=== PATIENT | female | born 2000 | race Caucasian/White ===

== ENCOUNTER 2025-03-19 12:05 | Outpatient (CLI) | payer MEDICAID, SELFPAY ==
[2025-03-19 12:17] VITALS: BP 111/64; PULSE 96
[2025-03-19 12:25] VITALS: BP 102/56; PULSE 74
[2025-03-19 12:35] VITALS: BP 109/63; PULSE 75
[2025-03-19 12:45] VITALS: BP 106/64; PULSE 78
[2025-03-19 12:55] VITALS: BP 105/60; PULSE 77
== END 2025-03-19 13:05 | disposition home or self-care (01) ==
LOC: OPOB 12:06 → OBGYN 12:06
PROVIDERS: PCP Family Medicine; Visit Provider Family Medicine
DX: O36.8190 Decreased fetal movements, unspecified trimester, not applicable or unspecified (principal); Z3A.00 Weeks of gestation of pregnancy not specified
CPT/HCPCS: 59025; 99211

== ENCOUNTER 2025-03-26 06:40 | Inpatient (IN) | payer MEDICAID, SELFPAY ==
[2025-03-26] VITALS (29 sets, daily range): BP systolic 89–139; BP diastolic 51–76; PULSE 64–96; RESP 16–17; TEMP 36.6–37; O2SAT 97–98; BMI 26.6
[2025-03-26 07:39] LABS: Hematocrit 39.3 % (36-47); Hemoglobin 13.30 g/dL (11.27-16.99); Mean Corpuscular HGB Conc 33.8 g/dL (30-55); Mean Corpuscular Hemoglobin 30.6 pg (27-33); Mean Corpuscular Volume 90.3 fl (85-98); Nucleated Red Blood Cells % 0 %; Platelet Count 142 10^3/cmm (157-399); Red Blood Count 4.35 10^6/uL (3.85-5.65); White Blood Count 8.81 10^3/uL (3.29-11.43)
[2025-03-26] MEDS: oxytocin 30 UNIT/500 ML BAG 600 UNIT IV (08:33)
--- NOTE | 2025-03-26 08:41 | PM.OPHPUD ---
Labor & Delivery H&P Update Date of Procedure: March 26, 2025 Date H&P Performed: 03/24/25 Admission Diagnosis: IUP at 39 weeks 6 days gestation in active labor Planned procedure: Expectant management of labor and delivery
--- NOTE | 2025-03-26 08:43 | P.PCNOB_ITS ---
Delivery Note: Date of delivery: March 26, 2025 Procedure: Normal spontaneous vaginal delivery Delivering Physician: Libby Sinha MD Estimated blood loss (mL): 250 Pre-Delivery Course: The patient had routine care at [facility]. There were no complications during the . labs: She was blood type O+, antibody negative, hepatitis B nonreactive, hepatitis C nonreactive, HIV nonreactive, rubella immune, GC/chlamydia negative, RPR nonreactive, UDS negative, Pap smear was LSIL , Q low risk, she passed her glucose tolerance test, she was GBS negative. Delivery: This is a 24-year-old G2, P1 at 39 weeks 5 days gestation who presented to labor and delivery in active labor. She declined an epidural for pain management. Her labor progressed well on its own and she remained very much in control. When she was an anterior lip artificial rupture of membranes was performed with clear fluid. 2 contractions later she was ready to start pushing. She only had to push through about 3 or 4 contractions and had a normal spontaneous vaginal delivery of a viable male . Not yet weighed he is doing skin to skin. When the was born the umbilical cord spontaneously avulsed. I quickly grabbed the free end and placed the infant on mother's chest. The nurses were then able to suction him while I clamped the cord. Apgars were 8 and 9. The placenta was delivered grossly intact and normal to inspection. Barrington galindo had a very small first-degree perineal laceration that did not require suturing. Mother and were doing well after delivery A&P PDMP PDMP Reviewed: Not Reviewed Coding Level of Care Code Acute Code for Chg Fwd
[2025-03-26] MEDS: benzocaine-menthol 78 gm Canister 1 SPRAY TOPICAL (09:52)
[2025-03-26] MEDS: PRENATAL VIT NO.130/IRON/FOLIC 1 EACH TABLET PO (09:52)
[2025-03-26 20:56] LABS: Hematocrit 34.4 % (36-47); Hemoglobin 11.30 g/dL (11.27-16.99); Mean Corpuscular HGB Conc 32.8 g/dL (30-55); Mean Corpuscular Hemoglobin 30.1 pg (27-33); Mean Corpuscular Volume 91.5 fl (85-98); Platelet Count 127 10^3/cmm (157-399); Red Blood Count 3.76 10^6/uL (3.85-5.65); White Blood Count 10.12 10^3/uL (3.29-11.43)
[2025-03-27 04:52] VITALS: BP 113/70; PULSE 75; RESP 15; TEMP 36.6; TEMP 36.7; O2SAT 96
--- OUTSIDE RECORDS SUMMARY | 2025-03-27 06:11 | XMS_ITS | Continuity of Care Document ---
Author Name [facility] Organization [facility] Care Team Providers Care Shift Supervisor Melting Name Role Phone [facility] Unavailable Unavailable Problems Combined list of problems from Department of [facility] and [facility] facilities. It does not include entries that were removed or entered in error. Problem Status Onset Date Problem Type Date of Resolution Comments Source No Known Problems Active Condition 0029 [facility] visit for: examination for sports competition Inactive Condition [facility] Established Patient Age 5-11 School / Camp Physical Inactive Condition [facility] OTITIS EXTERNA Inactive Condition [facility] OTITIS EXTERNA - BOTH EARS Inactive Condition [facility] Vaccines Prophylactic Need Against DTP Inactive Condition [facility] Vaccines Prophylactic Need Against Bacterial Diseases Meningococcal Inactive Condition [facility] Preventive Medicine New Patient Evaluation Childhood 5-11 Active Condition [facility] Need For Vaccination Human Papilloma Virus Inactive Condition [facility] visit for: issue medical certificate Inactive Condition [facility] visit for: administrative purpose Inactive Condition [facility] Medications Combined list of outpatient medications from Department of [facility] and [facility] facilities.Medications provided include 1) outpatient medications from the last 15 months, and 2) patient-reported medications. Medication Details Route Status Patient Instructions Prescription Expires Prescription Number Last Dispense Date Ordering Provider Order Date Order Qty Source cetirizine 10 mg oral tablet 1 tab(s), Oral, Daily, PRN allergy symptoms , # 90 tab(s), 0 total refill(s ), [facility], Pharmacy : [facility] Oral (given by mouth) Ordered 3 2022 90.0 0029A-N [facility] diphenhydrA MINE 25 mg oral capsule 1 cap(s), Oral, TID, PRN itching, # 30 cap(s), 0 total refill(s ), [place], Pharmacy : [facility] Oral (given by mouth) Ordered 3 2022 30.0 0029A-N [facility] valACYclovi r 1 g oral tablet 1 tab(s), Oral, BID, drink plenty of fluids, X 10 days, # 20 tab(s), 0 total refill(s ), Acute, 08/15/23 10:21:00 AM [employer]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 It does not include entries that were removed or entered in error. Substance Category Reaction Severity Reaction type Status Date Reported Comments Source No Known Allergies Drug allergy (disorder) active 08/05/2023 [facility] Immunizations Combined list of available immunizations from the Department of [facility] and [facility] facilities. Immunization Series Date Given Administered By Site Reaction Lot Number CVX Code Drug Metal Stamper Status Comments Source influenza, injectable, quadrivalent- pf 2019 zzLef t Arm [id number] 150 Seqirus complet ed influenza , injectabl e, quadrival ent-pf 06/15/20 Given Ambulat ory Pharmac y Influenza, injectable, quadrivalent, preservative free 1 2019 SADIE LITTLE [id number] 150 Seqirus (SEQ) complet ed Influenza , injectabl e, quadrival ent, preservat verena free DoD tetanus, diphtheria, acellular pertu is 2012 Eliseo Arm [id number] 115 sanofi pasteur complet ed tetanus, diphtheri a, acellular pertussis 01/01/13 Given Ambulat ory Pharmac y meningococcal A,C,Y,W-135 (MCV4P) 2012 zzLef t Arm [id number] [employer] complet ed meningoco ccal A,C,Y,W-1 35 (MCV4P) 01/01/13 Given Ambulat ory Pharmac y Human Papillomaviru s,quadrivalen t(HPV4) 2012 zzLef t Arm [id number] Merck & Company Inc complet ed Human Papilloma virus,ana drivalent (HPV4) 01/01/13 Given Ambulat ory Pharmac y human papilloma virus vaccine, quadrivalent 3 2012 Unknown, Provider [id number] Merck (MSD) complet ed human papilloma virus vaccine, quadrival ent DoD meningococcal polysaccharid e (groups A, C, Y and W-135) diphtheria toxoid conjugate vaccine (MCV4P) 1 2012 Unknown, Provider [id number] Dandre (WAL) complet ed meningoco ccal polysacch aride (groups A, C, Y and W-135) diphtheri a toxoid conjugate vaccine (MCV4P) DoD tetanus toxoid, reduced diphtheria toxoid, and acellular pertu is vaccine, adsorbed 1 2012 Unknown, Provider [id number] 115 Sanofi Pasteur (PMC) complet ed tetanus toxoid, reduced diphtheri a toxoid, and acellular pertussis vaccine, adsorbed DoD Human Papillomaviru s,quadrivalen t(HPV4) 2011 zzLef t Arm [id number] [employer] complet ed Human Papilloma virus,ana drivalent (HPV4) 04/17/12 Given Ambulat ory Pharmac y human papilloma virus vaccine, quadrivalent 2 2011 Unknown, Provider [id number] 62 [employer] (MSD) complet ed human papilloma virus vaccine, quadrival ent DoD Human Papillomaviru s,quadrivalen t(HPV4) 2010 Body, whole TRANSCR IBED 62 complet ed Human Papilloma virus,ana drivalent (HPV4) 12/13/10 Given Ambulat ory Pharmac y human papilloma virus vaccine, quadrivalent 1 2010 62 Transcribed (TRS) complet ed human papilloma virus vaccine, quadrival ent DoD DTaP 2006 Transcr ibed 20 complet ed DTaP 03/10/07 Given Ambulat ory Pharmac y varicella virus vaccine 2006 Body, whole TRANSCR IBED 21 complet ed varicella virus vaccine 03/10/07 Given Ambulat ory Pharmac y poliovirus vaccine, inactivated 2006 Transcr ibed 10 complet ed polioviru s vaccine, inactivat ed 03/10/07 Given Ambulat ory Pharmac y measles/mumps /rubella virus vaccine 2006 Body, whole TRANSCR IBED 03 complet ed measles/m umps/rube lla virus vaccine 03/10/07 Given Ambulat ory Pharmac y measles, mumps and rubella virus vaccine 2 2006 03 Transcribed (TRS) complet ed measles, mumps and rubella virus vaccine DoD poliovirus vaccine, inactivated 4 2006 Unknown, Provider Transcr ibed 10 Transcribed (TRS) complet ed polioviru s vaccine, inactivat ed DoD diphtheria, tetanus toxoids and acellular pertu is vaccine 5 2006 Unknown, Provider Transcr ibed 20 Transcribed (TRS) complet ed diphtheri a, tetanus toxoids and acellular pertussis vaccine DoD varicella virus vaccine 2 2006 21 Transcribed (TRS) complet ed varicella virus vaccine DoD Hep A, ped/adol, 2 dose 2005 Body, whole TRANSCR IBED 83 complet ed Hep A, ped/adol, 2 dose 04/19/06 Given Ambulat ory Pharmac y hepatitis A vaccine, pediatric/ado lescent dosage, 2 dose schedule 2 2005 83 Transcribed (TRS) complet ed hepatitis A vaccine, pediatric /adolesce nt dosage, 2 dose schedule DoD Hep A, ped/adol, 2 dose 2004 Body, whole TRANSCR IBED 83 complet ed Hep A, ped/adol, 2 dose 05/04/05 Given Ambulat ory Pharmac y hepatitis A vaccine, pediatric/ado lescent dosage, 2 dose schedule 1 2004 83 Transcribed (TRS) complet ed hepatitis A vaccine, pediatric /adolesce nt dosage, 2 dose schedule DoD poliovirus vaccine, inactivated 2002 Transcr ibed 10 complet ed polioviru s vaccine, inactivat ed 06/16/03 Given Ambulat ory Pharmac y poliovirus vaccine, inactivated 3 2002 Unknown, Provider Transcr ibed 10 Transcribed (TRS) complet ed polioviru s vaccine, inactivat ed DoD measles/mumps /rubella virus vaccine 2002 Body, whole TRANSCR IBED 03 complet ed measles/m umps/rube lla virus vaccine 06/08/03 Given Ambulat ory Pharmac y hepatitis B pediatric/ado lescent 2002 Transcr ibed 08 complet ed hepatitis B pediatric /adolesce nt 06/08/03 Given Ambulat ory Pharmac y pneumococcal 7-valent vaccine 2002 Transcr ibed 100 complet ed pneumococ quita 7-valent vaccine 06/08/03 Given Ambulat ory Pharmac y haemophilus b conj (PRP-OMP) vaccine 2002 Body, whole TRANSCR IBED 49 complet ed haemophil us b conj (PRP-OMP) vaccine 06/08/03 Given Ambulat ory Pharmac y varicella virus vaccine 2002 Body, whole TRANSCR IBED 21 complet ed varicella virus vaccine 06/08/03 Given Ambulat ory Pharmac y DTaP 2002 Transcr ibed 20 complet ed DTaP 06/08/03 Given Ambulat ory Pharmac y measles, mumps and rubella virus vaccine 1 2002 03 Transcribed (TRS) complet ed measles, mumps and rubella virus vaccine DoD hepatitis B vaccine, pediatric or pediatric/ado lescent dosage 3 2002 Unknown, Provider Transcr ibed 08 Transcribed (TRS) complet ed hepatitis B vaccine, pediatric or pediatric /adolesce nt dosage DoD diphtheria, tetanus toxoids and acellular pertu is vaccine 4 2002 Unknown, Provider Transcr ibed 20 Transcribed (TRS) complet ed diphtheri a, tetanus toxoids and acellular pertussis vaccine DoD varicella virus vaccine 1 2002 21 Transcribed (TRS) complet ed varicella virus vaccine DoD Haemophilus influenzae type b vaccine, PRP-OMP conjugate 2 2002 49 Transcribed (TRS) complet ed Haemophil us influenza e type b vaccine, PRP-OMP conjugate DoD pneumococcal conjugate vaccine, 7 valent 3 2002 Unknown, Provider Transcr ibed 100 Transcribed (TRS) complet ed pneumococ quita conjugate vaccine, 7 valent DoD pneumococcal 7-valent vaccine 2002 Transcr ibed 100 complet ed pneumococ quita 7-valent vaccine 09/30/02 Given Ambulat ory Pharmac y DTaP 2002 Transcr ibed 20 complet ed DTaP 09/30/02 Given Ambulat ory Pharmac y diphtheria, tetanus toxoids and acellular pertu is vaccine 3 2002 Unknown, Provider Transcr ibed 20 Transcribed (TRS) complet ed diphtheri a, tetanus toxoids and acellular pertussis vaccine DoD pneumococcal conjugate vaccine, 7 valent 2 2002 Unknown, Provider Transcr ibed 100 Transcribed (TRS) complet ed pneumococ quita conjugate vaccine, 7 valent DoD poliovirus vaccine, inactivated 2001 Transcr ibed 10 complet ed polioviru s vaccine, inactivat ed 8/15/02 Given Ambulat ory Pharmac y haemophilus b conjugate (HbOC) vaccine 2001 Body, whole TRANSCR IBED 47 complet ed haemophil us b conjugate (HbOC) vaccine 03/26/02 Given Ambulat ory Pharmac y DTaP 2001 Transcr ibed 20 complet ed DTaP 03/26/02 Given Ambulat ory Pharmac y poliovirus vaccine, inactivated 2 2001 Unknown, Provider Transcr ibed 10 Transcribed (TRS) complet ed polioviru s vaccine, inactivat ed DoD diphtheria, tetanus toxoids and acellular pertu is vaccine 2 2001 Unknown, Provider Transcr ibed 20 Transcribed (TRS) complet ed diphtheri a, tetanus toxoids and acellular pertussis vaccine DoD Haemophilus influenzae type b vaccine, HbOC conjugate 1 2001 47 Transcribed (TRS) complet ed Haemophil us influenza e type b vaccine, HbOC conjugate DoD pneumococcal 7-valent vaccine 2001 Transcr ibed 100 complet ed pneumococ quita 7-valent vaccine 01/09/02 Given Ambulat ory Pharmac y haemophilus b-hepatitis B vaccine 2001 Body, whole TRANSCR IBED 51 complet ed haemophil us b-hepatit is B vaccine 01/09/02 Given Ambulat ory Pharmac y DTaP 2001 Transcr ibed 20 complet ed DTaP 01/09/02 Given Ambulat ory Pharmac y poliovirus vaccine, inactivated 2001 Transcr ibed 10 complet ed polioviru s vaccine, inactivat ed 01/09/02 Given Ambulat ory Pharmac y poliovirus vaccine, inactivated 1 2001 Unknown, Provider Transcr ibed 10 Transcribed (TRS) complet ed polioviru s vaccine, inactivat ed DoD diphtheria, tetanus toxoids and acellular pertu is vaccine 1 2001 Unknown, Provider Transcr ibed 20 Transcribed (TRS) complet ed diphtheri a, tetanus toxoids and acellular pertussis vaccine DoD Haemophilus influenzae type b conjugate and Hepatitis B vaccine 1 2001 51 Transcribed (TRS) complet ed Haemophil us influenza e type b conjugate and Hepatitis B vaccine DoD pneumococcal conjugate vaccine, 7 valent 1 2001 Unknown, Provider Transcr ibed 100 Transcribed (TRS) complet ed pneumococ quita conjugate vaccine, 7 valent DoD hepatitis B pediatric/ado lescent 2001 Transcr ibed 08 complet ed hepatitis B pediatric /adolesce nt 01 Given Ambulat ory Pharmac y hepatitis B vaccine, pediatric or pediatric/ado lescent dosage 2 2001 Unknown, Provider Transcr ibed 08 Transcribed (TRS) complet ed hepatitis B vaccine, pediatric or pediatric /adolesce nt dosage DoD Results Combined list of recent chemistry, hematology and other laboratory results from [facility] and [facility], ranging from 15 months to all on record, depending upon the facility. Order Name Results Value Reference Range Date Interpretation Specimen Comments Source Molecular Infectious Disease Reason for Test? Screening (11/20/20 10:46 AM) 11/[address] [place] [address] ([facility]) Molecular Infectious Disease SARS-CoV -2 PCR Negative (11/20/20 10:46 AM) 11/[address] [place] [address] ([facility]) Vital Signs Combined list of inpatient and outpatient Vital Signs from [facility] and [facility], ranging from 12 months to all on record, depending upon the facility. Vital Sign Value Date Comments Source Temperature Oral 36.9 Isabel 08/05/2023 15:36:00 [facility] Peripheral Pulse Rate 85 bpm 08/05/2023 15:36:[address] [place] [address] Respiratory Rate 14 br/min 08/05/2023 15:36:00 [facility] Systolic Blood Pressure 116 mm[Hg] 08/05/2023 15:36:[address] [place] [address] Diastolic Blood Pressure 69 mm[Hg] 08/05/2023 15:36:00 [facility] Encounters Combined list of: 1) Encounters from Department [facility] facilities going backup to the last 18 months, not all [place] inpatient encounters are included; 2) Encounters from the Department [facility] facilities going backup to 280 months. 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 HENRIETTA ESPINOZA 12/22 Released w/o Limitations [facility]) [facility], [place], [place] F01A SEMH[place] TELE CONSULT [id number] Notes Entered by: Masoud BISWAS 26 Mar 2012 1110 ------- ------- ------- ------- -- RENUKA MAHMOOD - NATHALY HAMM 03/26 [place], [facility] [place] F01A SEMH) [facility], [facility] [place] F01A SEM) TELE CONSULT [id number] Notes Entered by: CANDACE DONG 27 Mar 2012 1417 ------- ------- ------- ------- -- [place] FORM REQUEST MYRON DONG 03/27 Other Not Elsewhere Classified [place] [facility], [facility], [place] F01A SEMH) [facility], [facility] [place] F01A SEM) OUTPATIENT [id number] school/ sport physica l/cys FLAVIA GE 04/17 Released w/o Limitations [place] [facility], [facility] [place] F01A SEMH) [facility], [facility] [place] F01A SEM) TELE CONSULT [id number] Notes Entered by: MARY VILLANUEVA L 24 Oct 2012 1601 ------- ------- ------- ------- -- FEVER (102.8) /SORE THROAT/ WHITE SPOTS IN THROAT. PCM/TRA FAUSTINO RILEY 10/24 Other Not Elsewhere Classified [place] [facility], [facility] [place] F[facility] [facility], [facility] [place] F[facility] TELE CONSULT [id number] Notes Entered by: ANKUSH LEWIS 01 Jan 2013 1040 ------- ------- ------- ------- -- RENUKA MAHMOOD/EAR DISCOMF ORT/JAKOB Vizcaino JOLENE MASTERSON Telly 01/01 Referred for Appointment [facility] [employer] F01A SEM[facility] [facility] [employer], [place] F01A SEMH) OUTPATIENT [id number] ok per PCM: bilater al ear pain, possibl e swimmer 's ear LUMA, FLAVIA 01/01 Released w/o Limitations [facility], [employer] F[facility] [facility] [facility] [employer] F[facility] [facility] TELE CONSULT [id number] Notes Entered by: ARABELLA GROVES 02 Jan 2013 1217 ------- ------- ------- ------- -- Ear pain-Pt very fussy.P t seen yesterd ay.MOP wants a call.FREDDY Varner/[place] GE, FLAVIA 01/02 [facility] [employer] F[facility] [facility] [facility] [employer], [place] F01A SEMH) OUTPATIENT [id number] school mike GE, FLAVIA 04/10 Released w/o Limitations [facility], [employer] F[facility] [facility] [facility], [employer] [facility] [facility] OUTPATIENT [id number] SPORTS PHYS/TR SUSHIL GE, FLAVIA 12/18 Released w/o Limitations [facility], [employer] F[facility] [facility] [facility], [employer] F01A SEMH) TELE CONSULT [id number] Notes Entered by: NATHALY IVY 25 Feb 2014 1443 ------- ------- ------- ------- -- EAR PAIN FLAVIA GE 02/25 [facility] [employer] F[facility] [facility]) [facility] [place]([facility] F01A SEM) OUTPATIENT [id number] WALK-IN /EAR PAIN/NO TCON/TO LD TO WALK-IN /TRAWIN SKI FLAVIA GE 02/26 Released w/o Limitations [facility] [place]([facility] F01A SEM) [employer]([facility]) OUTPATIENT 13 Y/O F mother C/O Fever,B odyache s,Cough x 1 day JOSIAH PRABHAKAR Moralez 09/27 Sick at Home/Quarter s [facility]) Fe roe [facility] [place]([facility] F01A SEM) TELE CONSULT [id number] Notes Entered by: NATHALY IVY 27 Apr 2015 0824 ------- ------- ------- ------- -- Ankle pain FLAVIA GE 04/27 [facility] [place]([facility] F01A SEM) Fe roe [facility] [place]([facility] F01A SEM) TELE CONSULT [id number] Notes Entered by: OZZIE GARCIA 26 Jul 2015 1007 ------- ------- ------- ------- -- Trawins ki/RH Rash MAYRA GARCIA 07/26 Released to Self Care Syed iejyothi [facility] [place] dimitri [place]([facility] F01A SEM) Fe ro[place] [facility] [place] F01A SEM) TELE CONSULT [id number] Notes Entered by: Masoud PORRAS 08 Sep 2015 0759 ------- ------- ------- ------- -- TRAWINS KI/SORE THROAT/ SEE NOTES MAYRA GARCIA 09/08 Referred for Appointment [facility] [place]([facility] F01A SEM) Fe roe [facility] [place]([facility] F01C SEM) OUTPATIENT [id number] Trawins ki/sore throat and swollen tonsils LUKE PICKETT 09/08 Released w/o Limitations [facility], [place]([facility] F01C SEMH) Fe [place] F01C SEM) TELE CONSULT [id number] Notes Entered by: LUKE PICKETT 12 Sep 2015 1313 ------- ------- ------- ------- -- Valentina: ) lab results /recomm endatio ns MARTHA STOCK 09/12 [facility] for Appointment [facility] [place] F01C [facility]) Fe roe [facility] [place] F01A SEMH) TELE CONSULT [id number] Notes Entered by: LAURYN LINTON SA 01 Jun 2016 0957 ------- ------- ------- ------- -- TRAWINS KI/ SPORTS PHYSICA L REQUEST / SEE NOTES MICHELLE CLEMENS 06/01 Referred for Appointment [facility], [place] F[facility]) Fe roe [facility], [facility] [place] F[facility] [facility] OUTPATIENT [id number] Trawins ki/ sports PE FLAVIA GE 06/05 Released w/o Limitations [facility], [facility] [place] F[facility]) [facility], [facility] [place] F[facility] [facility] OUTPATIENT [id number] RIGHT KNEE PAIN/RE CENT INJURY/ TRAINSK I GIRISH FRIED 07/02 Released w/o Limitations [facility] [place] F[facility]) [facility] M01B Green) OUTPATIENT [id number] Bad Cough SHAW KATY Ken 05/15 Sick at Home/Quarter s [employer](A M01B Green) [employer]([facility] M01B Green) TELE CONSULT [id number] Notes Entered by: Nikia LOU 19 Jun 2017 1551 ------- ------- ------- ------- -- Need Immuniz ation Signed and stamped CARLOSKALIGISELL L 06/19 [facility](A M01B Green) [facility]) OUTPATIENT [id number] 17y/o F c/o L hand pain PARAMJIT VELÁSQUEZ 12/01 Released w/o Limitations [facility] Immedia te Care Clinic) Giovani [facility] Acsis [place]([facility] [id number]) OUTPATIENT [id number] SORE THROAT, NECK SWOLLEN /PAIN PER PATIENT REQUEST RHIANNON BURRELL 04/07 Released w/o Limitations [facility]ute [facility] [place]([facility] 01DIHFM C4) [facility](P Primary Care) OUTPATIENT [id number] COVID TEST PREET TAYLOR 02/23 Released w/o Limitations [facility]( EP Primary Care) [facility]) OUTPATIENT [id number] Notes Entered by: PARAMJIT SANTACRUZ 16 Apr 2020 1319 ------- ------- ------- ------- -- PATRICK DIEHL 04/16 Released w/o Limitations [facility] Ambulat ory) [facility](P Primary Care) OUTPATIENT [id number] Notes Entered by: JOHN JO 14 Jun 2020 0603 ------- ------- ------- ------- -- HENOK FAIR 06/14 Released w/o Limitations [facility]( EP Primary Care) [facility] Flu Clinic) OUTPATIENT [id number] SADIE LITTLE 06/15 Released w/o Limitations [facility] Flu Clinic) [facility] Ambulator y) OUTPATIENT [id number] Mooney/le g pain FLAVIA SANTACRUZ 06/23 Released with Work/Duty Limitations [employer](T MC Ambulat ory) [employer](C Ambulator y) OUTPATIENT [id number] F/U Mooney FLAVIA Luke 06/30 Released with Work/Duty Limitations [employer](T MC Ambulat ory) [employer](IEP Primary Care) OUTPATIENT [id number] Notes Entered by: Yomi CEVALLOS 10 Nov 2020 0657 ------- ------- ------- ------- -- DEF IMM DORIAN CEVALLOS 11/10 Released w/o Limitations [facility](I EP Primary Care) Procedures Combined list of: 1) Procedures from Department of Veterans Affairs facilities going back up to thelast 18 months, not all VA non-surgical procedures are included; 2) All procedures from the Department of Defense facilities. Procedure Procedure Type Code Date Perfomer Comments Sourc e No data available for this section Ambulato ry Pharmacy SCREENING TEST OF VISUAL ACUITY, QUANTITATIVE, BILATERAL 016 DoD TELE ASSESS & MGT SRV PROV QUAL NONPHYS HLTH CARE PRO TO EST PAT,PARENT,GUARD NOT ORIG REL ASSESS & MGT SRV PROV W/IN PREV 7 DAYS NOR LEAD ASSESS & MGT SRV/PX W/IN NXT 24 HR/SOON APT;5-10 MIN MED DIS 016 DoD INFECTIOUS AGENT ANTIGEN DETECTION BY IMMUNOASSAY WITH DIRECT OPTICAL (IE, VISUAL) OBSERVATION; STREPTOCOCCUS, GROUP A 016 DoD SCREENING TEST OF VISUAL ACUITY, QUANTITATIVE, BILATERAL 014 DoD SCREENING TEST OF VISUAL ACUITY, QUANTITATIVE, BILATERAL 013 DoD HUMAN PAPILLOMAVIRUS VACCINE, TYPES 6, 11, 16, 18, QUADRIVALENT (4VHPV), 3 DOSE SCHEDULE, FOR INTRAMUSCULAR USE 013 DoD TELE ASSESS & MGT SRV PROV QUAL NONPHYS HLTH CARE PRO TO EST PAT,PARENT,GUARD NOT ORIG REL ASSESS & MGT SRV PROV W/IN PREV 7 DAYS NOR LEAD ASSESS & MGT SRV/PX W/IN NXT 24 HR/SOON APT;5-10 MIN MED DIS 013 DoD SCREENING TEST OF VISUAL ACUITY, QUANTITATIVE, BILATERAL 012 DoD HEPATITIS B VACCINE (HEPB), PEDIATRIC/ADOLESC ENT DOSAGE, 3 DOSE SCHEDULE, FOR INTRAMUSCULAR USE [facility] IMMUNIZATION ADMINISTRATION (INCLUDES PERCUTANEOUS, INTRADERMAL, SUBCUTANEOUS, OR INTRAMUSCULAR INJECTIONS); 1 VACCINE (SINGLE OR COMBINATION VACCINE/TOXOID) [facility] ADENOVIRUS VACCINE, TYPE 7, LIVE, FOR ORAL USE [facility] EAR MOLD/INSERT, NOT DISPOSABLE, ANY TYPE [facility] TELE ASSESS & MGT SRV PROV QUAL NONPHYS HLTH CARE PRO TO EST PAT,PARENT,GUARD NOT ORIG REL ASSESS & MGT SRV PROV W/IN PREV 7 DAYS NOR LEAD ASSESS & MGT SRV/PX W/IN NXT 24 HR/SOON APT;5-10 MIN MED DIS 017 [facility] INFECTIOUS AGENT ANTIGEN DETECTION BY IMMUNOASSAY WITH DIRECT OPTICAL (IE, VISUAL) OBSERVATION; STREPTOCOCCUS, GROUP A 015 [facility] Non-Physician Phone Call To Patient/Provider Brief (5-10min) Non-Physician Phone Call To Patient/Provider Brief (5-10min) [phone] GISELL GONZALEZ [facility] Screening Test Of Visual Acuity, Quantitative, Bilateral Screening Test Of Visual Acuity, Quantitative, Bilateral [phone] FLAVIA GE [facility] Non-Physician Phone Call To Patient/Provider Brief (5-10min) Non-Physician Phone Call To Patient/Provider Brief (5-10min) [phone] MICHELLE CLEMENS [facility] Rapid Antigen Identification Streptococcus Group A Beta Hemolytic Rapid Antigen Identification Streptococcus Group A Beta Hemolytic [id number] [id number] LUKE PICKETT [facility] Streptococcus Direct Screen Streptococcus Direct Screen [phone] PRABHAKAR RAHMAN NEGATIVE [facility] Screening Test Of Visual Acuity, Quantitative, Bilateral Screening Test Of Visual Acuity, Quantitative, Bilateral [id number] [phone] FLAVIA GE [facility] Human Papilloma Virus Vaccine, Quadrivalent Human Papilloma Virus Vaccine, Quadrivalent [id number] [phone] FLAVIA GE Human Papilloma Virus Quadrivalent; Series #: 3; .5 mL; IM; Left Arm; [facility]: [employer]; Lot: [id number]; VIS given (Elke: 10/03/11). [facility] Meningococcal Conjugate Vaccine Tetravalent (A C Y W-135) FLAVIA GE Meningococcal A,C,Y,W-135 Diphtheria Conj; Series #: 1; .5 mL; IM; Left Arm; Mfg: [employer]; Lot: [id number]; VIS given (Elke: 05/25/11). [facility] Tdap Vaccine Tdap Vaccine 91965 FLAVIA GE Tdap; Series #: 1; .5 mL; IM; Right Arm; Mfg: Sanof[employer] P[employer]; Lot: [id number]; VIS given (Elke: 09/04/11). DoD Immunization Administration One Vaccine Immunization Administration One Vaccine 74053 FLAVIA GE [facility] Immunization Administration Each Additional Vaccine Immunization Administration Each Additional Vaccine 83645 FLAVIA GE [facility] Non-Physician Phone Call To Patient/Provider Brief (5-10min) Non-Physician Phone Call To Patient/Provider Brief (5-10min) [phone] FAUSTINO KAMARA [facility] Human Papilloma Virus Vaccine, Quadrivalent Human Papilloma Virus Vaccine, Quadrivalent 55019 012 FLAVIA GE [facility] Vaccines Vaccines 82143 012 FLAVIA GE Human Papilloma Virus Quadrivalent; Series #: 2; .5 mL; IM; Left Arm; Mfg: Merck; Lot: [id number]; VIS given (Elke: 10/03/11). DoD Immunization Administration One Vaccine Immunization Administration One Vaccine 28521 012 FLAVIA GE [facility] Immunization Administration One Vaccine Immunization Administration One Vaccine 74836 [facility], HENOK [facility] Immunization Administration Each Additional Vaccine Immunization Administration Each Additional Vaccine 74464 [facility], [facility] Vaccines Viral Polio, Inactivated (Salk) Vaccines Viral Polio, Inactivated (Salk) 71605 [facility], [facility] Vaccines Viral Measles, Mumps and Rubella, Live Vaccines Viral Measles, Mumps and Rubella, Live 29243 [facility], [facility] Tdap Vaccine Tdap Vaccine 64220 [facility], [facility] Immunization Admin Intranasal / Oral Each Additional Vaccine Immunization Admin Intranasal / Oral Each Additional Vaccine 18218 [facility], [facility] Vaccines Adenovirus Type 4 Live, For Oral Use Vaccines Adenovirus Type 4 Live, For Oral Use 18963 [facility] Aden[facility] Type 7 Live, For Oral Use Vaccines Adenovirus Type 7 Live, For Oral Use 58820 STICKJOON, HENOK [facility] Social History Combined list of available smoking, tobacco, and other social history from [facility] facilities. Social History Type Response Date Comment [facility] e Tobacco Never-cigarette user Cigarette use:. Never-other tobacco user (not cigarettes) Other Tobacco use:. Ambulatory Pharmacy Sexual Orientation Ambula tory Pharmacy Gender identity Ambulator y Pharmacy Sex Representation Female (finding) Unknown Organization This section is an empty social history section. [facility] Assessment and Plan Combined list of future care activities from [facility] of Defense and Veterans Affairs facilities (e.g., assessment and plan notes, appointments, orders, and referrals). Additional future care activities may be listed in the Plan of Care section. Result Assessment and Plan Date Source Assessment and Plan No data available for this section 03/27/2025 Ambulatory Pharmacy Functional Status Combined list of recent functional and cognitive assessments recorded at [facility] Functional [place] Measurement (FIM) Scale: 1 = Total Assistance (Subject = 0% +), 2 = Maximal Assistance (Subject = 25% +), 3 = Moderate Assistance (Subject = 50% +), 4 = Minimal Assistance (Subject = 75% +), 5 = Supervision, 6 = Modified [place] (Device), 7 = Complete [place] (Timely, Safely). Assessment Date/Time Source Assessment Type Assessment Skill Assessment Score Assessment Details No data available for this section
[2025-03-27] MEDS: PRENATAL VIT NO.130/IRON/FOLIC 1 EACH TABLET PO (09:22)
[2025-03-27 09:24] VITALS: BP 104/66; PULSE 79; RESP 17; TEMP 36.7; O2SAT 98
--- NOTE | 2025-03-27 10:17 | PM.DCS ---
Discharge Providers Date of Admission: 03/26/25 06:40 Date of Discharge: March 27, 2025 Attending Provider at Admission: Libby Sinha MD Attending Provider at Discharge: Libby Sinha MD Primary Care Provider: Libby Sinha MD Reason for Visit Reason for Visit: contactions Hospital Course Hospital Course This is a 24-year-old G2 now P2 who was admitted in active labor. She had a normal spontaneous vaginal delivery of a viable male . day #1 she is doing well. She is ambulating, tolerating a regular diet, has no pain and average vaginal bleeding. She is comfortable with discharge home. Physical Exam Narrative: Alert and oriented sitting in bed feeding the , heart regular rate and rhythm, lungs clear to auscultation bilaterally, abdomen is soft and nontender, fundus is firm, extremities have no calf tenderness and no edema Discharge Data Studies Completed and Pending Laboratory Results WBC 10.12 10^3/uL (3.29-11.43) 03/26/25 20:50 RBC 3.76 10^6/uL (3.85-5.65) L 03/26/25 20:50 Hgb 11.30 g/dL (11.27-16.99) 03/26/25 20:50 Hct 34.4 % (36-47) L 03/26/25 20:50 MCV 91.5 fl (85-98) 03/26/25 20:50 MCH 30.1 pg (27-33) 03/26/25 20:50 MCHC 32.8 g/dL (30-55) 03/26/25 20:50 RDW 14.3 % (12.1-15.1) 03/26/25 20:50 Plt Count 127 10^3/cmm (157-399) L 03/26/25 20:50 MPV 12.4 fL (7.4-10.4) H 03/26/25 20:50 Neut % (Auto) 67.5 % 03/26/25 07:25 Lymph % (Auto) 22.8 % 03/26/25 07:25 [place] % (Auto) 7.3 % 03/26/25 07:25 Eos % (Auto) 0.8 % 03/26/25 07:25 Baso % (Auto) 0.6 % 03/26/25 07:25 Neut # (Auto) 5.95 10^3/uL (1.8-7.7) 03/26/25 07:25 Lymph # (Auto) 2.0 10^3/uL (0.8-4.8) 03/26/25 07:25 [place] # (Auto) 0.6 10^3/uL (0.2-0.9) 03/26/25 07:25 Eos # (Auto) 0.1 10^3/uL (0.0-0.8) 03/26/25 07:25 Baso # (Auto) 0.1 10^3/uL (0.0-0.1) 03/26/25 07:25 Nucleated RBC % (auto) 0 % 03/26/25 07: Nucleated RBCs # 0.0 /100WBC 03/26/25 07:25 Blood Type O Positive 03/26/25 07:25 Rho(D) Type Rh positive 03/26/25 07:25 Antibody Screen Negative 03/26/25 07:25 Vitals Last Vital Signs Temp 98.1 F 03/27/25 09:24 Pulse 79 03/27/25 09:24 Resp 17 03/27/25 09:24 BP 104/66 03/27/25 09:24 Pulse Ox 98 03/27/25 09:24 O2 Del Method Room Air 03/27/25 09:24 Discharge Plan Discharge Patient Disposition: Home Condition: Stable Prescriptions: Continued 1 tab PO DAILY Discharge Order = DC NOW: Discharge Order (Routine); Ordered 03/27/25 Ordered By: Libby Sinha Referrals: Libby Sinha MD [Primary Care Provider, [facility]] - 1 month Discharge Diet: Usual diet Discharge Activity: Limit activity as instructed Patient Instructions: Depression (DC), Bleeding (DC), Preeclampsia and Eclampsia After Delivery (GEN), Hemorrhage (DC), OB Discharge Report, OB Food/Drug Interaction Guide, Opioid Safety, OB Home Care, OB Proud Parent Packet, OB Vaginal Deliveries, Patient Portal & Stella Instructions Activity Restrictions/Additional Instructions: Nothing per vagina for 6 weeks. Follow-up in 4 weeks Discharge Attestations Time Spent in Discharge Care*: less than 30 min Quality Metrics Clinical Quality Measures [ No reported AMI, CVA or VTE this stay] Coding Level of Care Code Acute Code for Chg Fwd
[2025-03-27 12:23] VITALS: BP 102/63; PULSE 75; RESP 16; TEMP 36.8; O2SAT 97
[2025-03-27 12:47] VITALS: BP 102/63; PULSE 75; RESP 16; TEMP 36.8; O2SAT 97
== END 2025-03-27 12:47 | disposition home or self-care (01) | DRG 807 ==
LOC: OPOB 03-27 06:10 → OBGYN 03-27 06:10
PROVIDERS: Admitting Provider Family Medicine; PCP Family Medicine; Visit Provider Family Medicine
DX: O80 Encounter for full-term uncomplicated delivery (principal); Z37.0 Single live birth; Z3A.39 39 weeks gestation of pregnancy
CPT/HCPCS: 36415; 59025; 59409; 85025; 85027; 86850; 86900; 99211; J2590; J3490; J9999

== ENCOUNTER 2025-04-16 20:18 | Emergency (ER) | payer MEDICAID, SELFPAY ==
--- OUTSIDE RECORDS SUMMARY | 2012-02-11 05:55 | XMS_ITS | Continuity of Care Document ---
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 Name Role Phone Emily Bill Unavailable Unavailable Allergies, Adverse Reactions, Alerts Substance Reaction Status Criticality No Known allergies Procedures Procedure Date Offic/outpt E m New Low-m Preven Meds E/M Est Pt 5-11 Yrs Of Age M Immuniz Admin; 1/combo Va HPV Provided By [facility] unization Offic/outpt E m Estab Low Offic/outpt E m Estab Low Offic/outpt E m Estab Low Offic/outpt E m Estab Low Nasal Bones Offic/outpt E m Estab Min Destrct Benign Lesions Up To 14 008 Offic/outpt E m Estab Low Inj Rocephin Ceftriaxone Therapeutic, IM Or SubQ Inject 07 Preven Meds E m Estab Pt; Diphth/tet Tox/acell Pert Immuniz Admin; 1/combo Va Poliovirus Vac Inactivate Measles/mumps/rubella Vac Varicella Virus Vac Live- Administration Of PPD TB Immuniz Admin; 2/> Sing/c Ua Dip Stick/tablet; Auto Cult Bacterial Urin; Sandoval Offic/outpt E m [facility] Advance Directives Directive Yes / No Effective Date File Name No Information Encounters Encounter Description Practice Location Reason(s) For Visit Diagnoses Date Provider Providers Copied on Encounter [facility], [address] [address], [place], [place], [id number], [place] tel:[phone] [facility] Pediatrics No Information 2 Guevara Diaz. [address] [place], [id number], [place]. tel:[phone] Offic/outpt E m [facility], [address] [address], [place], [id number], tel:[phone] Care sore throat (chief complaint) Acute streptococcal pharyngitis 2 Scotty Mclean. [address] [place], [place], [id number], [place]. tel:[phone] Referring Provider: Vinay Fajardo, [address] [place], [address] . tel:[phone] Preven Meds E/M Est Pt 5-11 Yrs Of Age [facility], [address] [address], [place], [place], [id number], [place] tel:[phone] [facility] Pediatrics 10 year well child check (chief complaint) No Information 1 Guevara Diaz. [address] [place], [id number], [place]. tel:[phone] Referring Provider: Emily Waterman, [address] [place], [address] . tel:[phone] Offic/outpt E m [facility], [address] [address], [place], [id number], [place] tel:[phone] [facility] Pediatrics fever (chief complaint) Pharyngitis, AcuteCough Oct-0 3 1 Guevara Diaz. [address] [place], [place], [id number], [place]. tel:[phone] Referring Provider: Emily Waterman, [address] , [place], [address] . tel:[phone] Offic/outpt E m [facility], [facility], [address] [address], [place], [place], [address], [place] tel:[phone] [facility] Pediatrics cough, sore throat (chief complaint) Pharyngitis, Acute Oct-0 1- 1 Guevara Diaz. [address] [place], [place], [address], [place]. [phone] Referring Provider: Emily Waterman, [address] [place], [address] . tel:[phone] Offic/outpt E m [facility], [address] [address], [place], [place], [address], [place] tel:[phone] [facility] Pediatrics wart removal 3rd digit left hand (chief complaint) Viral Warts Nec 9 No Information Offic/outpt E m [facility], [address] [address], [place], [place], [id number], tel:[phone] [facility] Pediatrics dog bite to nose (chief complaint) Animal Bite Nos 8 No Information [facility], [address] [address], [place], [place], [address], [place] tel:[phone] [facility] Radiology No Information 8 No Information Referring Provider: Yulissa Lozada, [address] [facility], [place], [address] . tel:[phone] Offic/outpt E m [facility], [address] [address], [place], [place], [address], [place] tel:[phone] [facility] Pediatrics poss broken nose (chief complaint) Acq Nose Deformity 5 8 Kierra Duenas. [address] [place], [place], [address], [place]. [phone] Referring Provider: Yulissa Lozada, [address] , [place], [address] . tel:[phone] [place] [facility], [address] [address], [place], [place], [address], [place] tel:[phone] [facility] Pediatrics wart R middle finger (chief complaint) Viral Warts Nos 8 Amrita Coreas. [address] [place], [place], [address], [place]. [phone] Referring Provider: Joss Crowe, [address] [place], [address] . tel:[phone] Offic/outpt E m Estab Low [facility], [address] [address], [place], [place], [address], [place] tel:[phone] [facility] Pediatrics possible vaccine reaction (chief complaint) No Information 7 No Information Preven Meds E m Estab Pt; [place] [facility], [address] [address], [place], [place], [address], [place] tel:[phone] [facility] Pediatrics No Information 7 Amrita Coreas. [address] [place], [place], [address], [place]. tel:[phone] Referring Provider: Joss Crowe, [address] [place], [address] . tel:[phone] [place] [facility], [address] [address], [place], [place], [address], [place] tel:[phone] [facility] Laboratory No Information 200 7 Amrita Coreas. [address] [place], [place], [address], [place]. tel:[phone] Referring Provider: Joss Crowe, [place], [address] . tel:[phone] Offic/outpt E m [facility], [facility], [address] [address], [place], [place], [address], tel:[phone] [facility] fevers (chief complaint) No Information Nov-0 7-200 7 Amrita Coreas. [facility] [address] [place], [place], [address], [place]. tel:[phone] Referring Provider: Joss Crowe, [facility] [place], [address] . tel:[phone] Family History Family Member Type Diagnosis Age At Onset No Information Immunizations Vaccine Date Status Comments HPV administered Note: tvc, stat e ; Source: New Immunization Record Varicella administered Source: New Imm unization Record MMR administered Source: New Imm unization Record Polio, inactivated (IPV) administered Rachel rce: New Immunization Record DTaP administered Source: New Imm unization Record Hep A (ped/adol, 2 dose) administered Rachel rce: New Immunization Record Hep A (ped/adol, 2 dose) administered Rachel rce: New Immunization Record Polio, inactivated (IPV) administered Rachel rce: New Immunization Record Pneumo (under 5) (PCV) administered Sourc e: New Immunization Record Varicella administered Source: New Imm unization Record MMR administered Source: New Imm unization Record DTaP administered Source: New Imm unization Record Hib (PRP-OMP) administered Source: New Im munization Record Hep B (ped/adol, 3 dose) administered Rachel rce: New Immunization Record Pneumo (under 5) (PCV) administered Sourc e: New Immunization Record DTaP administered Source: New Imm unization Record DTaP administered Source: New Imm unization Record Hib (PRP-OMP) administered Source: New Im munization Record Polio, inactivated (IPV) administered Rachel rce: New Immunization Record Pneumo (under 5) (PCV) administered Sourc e: New Immunization Record DTaP administered Source: New Imm unization Record Hib (PRP-OMP) administered Source: New Im munization Record Polio, inactivated (IPV) administered Rachel rce: New Immunization Record Hep B (ped/adol, 3 dose) administered Rachel rce: New Immunization Record Hep B (ped/adol, 3 dose) administered Rachel rce: New Immunization Record Payers Payer name Insurance type Covered libertarian ID Authoriza tion(s) Medicaid [id number] Social History Type Description Quantity Date Captured Comments Sex Female Smoking Status No Information Chief Complaint And Reason For Visit No Information Reason For Referral Reason For Referral No Information Plan Of Treatment Date Type Action Status Future Order: Lab Order Strep Screen (STR EP), Sent on: Sent Future Order: Lab Order PKU 2 (PKU2), Sen t on: Sent History Of Present Illness Encounter Date Complaint History Of Prese nt Illness No Information Functional Status Date Functional Assessmen t No Information Instructions Date Instruction Additional Infor joyion Prescribe medications Review medications Call if symptoms persist Patient education given Assessments Type Assessment Date No Information Patient Care Teams Name Effective Dates (start - stop) Status Members No Information
[2025-04-16 20:20] VITALS: BP 99/65; PULSE 102; RESP 16; TEMP 36.7; O2SAT 99; BMI 23.3
--- NOTE | 2025-04-16 20:41 | USR_ITS ---
PROCEDURE INFORMATION: Exam: US Left Breast Limited; Cellulitis or Abscess Evaluation Exam date and time: 04/16/2025 9:33 PM Age: 24 years old Clinical indication: Breast pain; Left; Additional info: Left breast mastitis, assess for abscess TECHNIQUE: Imaging protocol: Left breast ultrasound. Exam limited to the quadrant(s) of clinical concern. Exam focused on the evaluation of cellulitis or abscess. Exam is an emergent request and a non-BIRADS study. COMPARISON: No relevant prior studies available. FINDINGS: Breast/Soft tissues: No fluid collection to suggest abscess. US/US soft tissue/extremity [id number] IMPRESSION: No evidence of abscess.
[2025-04-16 21:14] VITALS: BP 124/80; PULSE 104; O2SAT 98
[2025-04-16 21:18] LABS: Hematocrit 41.0 % (36-47); Hemoglobin 13.10 g/dL (11.27-16.99); Mean Corpuscular HGB Conc 32.0 g/dL (30-55); Mean Corpuscular Hemoglobin 30.1 pg (27-33); Mean Corpuscular Volume 94.3 fl (85-98); Nucleated Red Blood Cells % 0 %; Platelet Count 168 10^3/cmm (157-399); Red Blood Count 4.35 10^6/uL (3.85-5.65); White Blood Count 7.22 10^3/uL (3.29-11.43)
--- NOTE | 2025-04-16 21:50 | ED_ITS ---
HPI - General Adult 2 General: Chief complaint: General Medical Stated complaint: Think might have mastastitis Time Seen by Provider: 04/16/25 20:20 Source: patient Mode of arrival: ambulatory Limitations: no limitations History of Present Illness: Patient is a 24-year-old female who presents to the emergency department with pain to her left breast. States that she gave vaginally 2 weeks ago, and arleen noticed the pain that radiates into her armpit and reports a history of mastitis stating this feels the same. This been going on for a few hours prehospital, states that she has been having chills but no fever. States that she has been also overproducing with milk, and left breast has also been engorged recently. States that she has not noticed any rash or masslike lesion in the breast, but the pain feels identical to her previous mastitis. MD complaint: Left breast pain Onset (ago): hour(s) Severity: similar to prior episodes Associated symptoms: Deny chest pain, dyspnea, headache(s), nausea, rash, palpitations or vomiting Treatments prior to arrival: none Related Data Home Medications ?Medication ?Instructions ?Recorded ?Confirmed 1 tab PO DAILY 03/26/2503/12 Previous Rx's ?Medication ?Instructions ?Recorded dicloxacillin 500 mg capsule 500 mg PO Q6H 14 days #56 caps 04/16/25 Allergies Allergy/AdvReac Type Severity Reaction Status Date / Time No Known Allergies Allergy Verified 03/26/25 06:10 Review of Systems 2 General: Reports: 10 or more systems reviewed and unremarkable except in HPI and below Const: Reports: chills; Denies: fever(s) or fatigue Eyes: Denies: change in vision ENMT: Denies: throat pain, ear or mastoid pain or nasal discharge Card: Denies: chest pain, palpitations, swelling of feet/ankles or lightheadedness Resp: Denies: dyspnea, productive cough or wheezing GI: Denies: abdominal pain, nausea, vomiting, diarrhea or constipation : Denies: flank pain, difficulty voiding, dysuria or urinary frequency Musc: Denies: neck pain, back pain or joint pain Skin/Breast: Reports: breast tenderness (Left), breast pain (Left) and breast swelling (Left); Denies: rash or breast skin changes Neuro: Denies: headache(s), numbness in extremities or weakness in extremities Physical Exam 2 Const: COMMON NORMALS: no acute distress and no limitations GENERAL APPEARANCE: cooperative, comfortable and well developed O RIENTATION/CONSCIOUSNESS: Yes awake HENMT: COMMON NORMALS: normocephalic, atraumatic and hearing grossly normal bilaterally HEAD & SCALP: normocephalic and atraumatic Eye: COMMON NORMALS: Equal, round and reactive pupils present, EOMs intact bilaterally and conjunctivae normal CONJUNCTIVA: Yes conjunctivae normal P UPIL: Yes Equal, round and reactive pupils present Neck/C-Spine: COMMON NORMALS: full ROM, supple and no JVD Chest: OTHER: Easily reproducible tenderness to palpation to left lateral breast, with no evidence of erythema or induration. No palpable mass or fluctuance. Resp: COMMON NORMALS: normal respiratory effort, No retractions, No use of accessory muscles and clear to auscultation bilaterally AUSCULTATION: clear to auscultation bilaterally Cardio: COMMON NORMALS: no JVD, regular rate, regular rhythm, No clicks present (Cardio), No murmurs present (Cardio) and No rub (Cardio) RATE: r egular rate RHYTHM: regular rhythm GI: COMMON NORMALS: Normal to inspection, nondistended, normoactive bowel sounds present, Soft to palpation and non-tender AUSCULTATION: Yes normoactive bowel sounds PALPATION: Yes Soft to palpation RECTAL EXAM: d eferred Extremity: COMMON NORMALS: normal to inspection, full ROM and capillary refill normal Skin: COMMON NORMALS: no rashes or lesions noted GENERAL SKIN EXAM: no rashes or lesions noted Course 2 Vital Signs: Vital signs: Vital Signs Temperature 98.1 F 04/16/25 20:20 Pulse Rate 91 04/16/25 23:24 Respiratory Rate 16 04/16/25 23:24 Blood Pressure 120/68 04/16/25 23:24 Pulse Oximetry 97 04/16/25 23:24 Oxygen Delivery Me thod Room Air 04/16/25 21:14 [facility] - General Adult Medical Decision Making Patient presenting with left breast pain beginning after lactating tonight, reports history of mastitis and states this feels similar. On exam there was no palpable fluctuance or erythema noted, no axillary lymphadenopathy and overall patient nontoxic-appearing. Vitals have been stable. CBC ordered and unremarkable, soft tissue ultrasound rules out any abscess or masslike lesion. I spoke with Dr. Daugherty in regards to patient's symptoms and if there is anything else to do in the ED, stating this could be early mastitis or clogged milk duct. I discussed with patient conservative measures and importance to follow-up with CALENDER MACHINE OPERATOR for further evaluation and I will start her on dicloxacillin in case this is early mastitis. She is given Motrin and Tylenol here notes some relief but ultimately discharged with strict return precautions. Lab Data 04/16/25 21:13 Radiology Impressions Soft Tissue Ultrasound 04/16/25 20:41 IMPRESSION: No evidence of abscess. Laboratory Results WBC 7.22 10^3/uL (3.29-11.43) 04/16/25 21:13 RBC 4.35 10^6/uL (3.85-5.65) 04/16/25 21:13 Hgb 13.10 g/dL (11.27-16.99) 04/16/25 21:13 Hct 41.0 % (36-47) 04/16/25 21:13 MCV 94.3 fl (85-98) 04/16/25 21:13 MCH 30.1 pg (27-33) 04/16/25 21:13 MCHC 32.0 g/dL (30-55) 04/16/25 21:13 RDW 12.6 % (12.1-15.1) 04/16/25 21:13 Plt Count 168 10^3/cmm (157-399) 04/16/25 21:13 MPV 11.4 fL (7.4-10.4) H 04/16/25 21:13 Neut % (Auto) 67.4 % 04/16/25 21:13 Lymph % (Auto) 24.7 % 04/16/25 21:13 [place] % (Auto) 5.3 % 04/16/25 21:13 Eos % (Auto) 1.9 % 04/16/25 21:13 Baso % (Auto) 0.6 % 04/16/25 21:13 Neut # (Auto) 4.87 10^3/uL (1.8-7.7) 04/16/25 21:13 Lymph # (Auto) 1.8 10^3/uL (0.8-4.8) 04/16/25 21:13 [place] # (Auto) 0.4 10^3/uL (0.2-0.9) 04/16/25 21:13 Eos # (Auto) 0.1 10^3/uL (0.0-0.8) 04/16/25 21:13 Baso # (Auto) 0.0 10^3/uL (0.0-0.1) 04/16/25 21:13 Nucleated RBC % (auto) 0 % 04/16/25 21:13 Nucleated RBCs # 0.0 /100WBC 04/16/25 21:13 All radiology interpretation(s) finalized by discharge Discharge Plan Discharge Patient Disposition: Home Clinical Impression: Mastitis Condition: Stable Prescriptions: New dicloxacillin 500 mg capsule 500 mg PO Q6H 14 Days Qty: 56 0RF No Action 1 tab PO DAILY Discharge Orders: Discharge ED (Routine); Ordered 04/16/25 Ordered By: Alejandro Gilliland Referrals: Libby Sinha MD [Primary Care Provider, Family Practice] Patient Instructions: Patient Portal & Stella Instructions Activity Restrictions/Additional Instructions: Mastitis Discharge Diagnosis and Treatment Plan: - 24-year-old female, 2 weeks , with left breast pain and tenderness during . - Clinical concern for early mastitis; no abscess on ultrasound. - Discharged on dicloxacillin 500 mg orally every 6 hours for 14 days, as recommended by the [employer] for outpatient management of mastitis.[1] https://www.acog.org/-/media/project/acog/acogorg/clinical/files/committee-opini on/articles//-challenges.pdf - Clogged duct also considered in the differential. and Milk Expression: - Continue or expressing milk from both breasts regularly. This is essential for resolution and prevention of milk stasis and is supported by the [place] [employer] and ACOG.[2] https://publications.aap.org/pediatrics/article-lookup/doi/10.1542/peds.2022-057 989 [1] https://w ww.acog.org/-/media/project/acog/acogorg/clinical/files/committee-opinion/articl es//-challenges.pdf - Ensure proper latch and technique; consider design center consultant referral if latch issues persist.[3] https://pubmed.ncbi.nlm.nih.gov/19290421 [4] https://pubmed.ncbi.nlm.nih.gov/66037962 - Avoid excessive pumping or overfeeding, as overstimulation may worsen inflammation.[3] https://pubmed.ncbi.nlm.nih.gov/19675646 Pain and Symptom Management: - Use nonsteroidal anti-inflammatory drugs (NSAIDs) such as ibuprofen and/or acetaminophen for pain and fever as needed.[3] https://pubmed.ncbi.nlm.nih.gov/08883317 [1] https://www.acog.org/-/media/project/acog/acogorg/cl inical/files/committee-opinion/articles//-challenges.pdf - Apply warm compresses to the affected area before feeding to help with milk flow and pain relief.[3] https://pubmed.ncbi.nlm.nih.gov/67636143 - Cold compresses or cold cabbage leaves may also be used after feeding to reduce pain and swelling, though evidence is of low certainty.[5] https://pubmed.ncbi.nlm.nih.gov/80806033 - Therapeutic breast massage in (TBML) may provide immediate pain relief and help resolve plugged ducts; gentle techniques are preferred to avoid tissue trauma.[6] https://pubmed.ncbi.nlm.nih.gov/28467485 [7] https://pubmed.ncbi.nlm.nih.gov/00543105 Additional Home Care Options: - Gentle manual techniques, such as the six-step recanalization manual therapy, may be effective for plugged ducts and can be taught for home use.[7] https://pubmed.ncbi.nlm.nih.gov/49635722 - Avoid aggressive breast massage, excessive heat, or attempts to empty the breast beyond physiologic needs, as these may increase tissue trauma and inflammation.[3] https://pubmed.ncbi.nlm.nih.gov/91995046 - Maintain good hand hygiene before or handling the breast, as recommended by the [place] [employer].[2] https://publications.aap.org/pediatrics/article-lookup/doi/10.1542/peds.2-057 989 [8] https://p ublications.aap.org/pediatrics/article-lookup/doi/10.1542/peds.2-244111 Antibiotic Therapy: - Take dicloxacillin 500 mg every 6 hours for 14 days as prescribed. Complete the full course even if symptoms improve earlier.[1] https://www.acog.org/-/media/project/acog/acogorg/clinical/files/committee-opini on/articles//-challenges.pdf - If allergic to penicillins, cephalexin or clindamycin are alternatives.[1] https://www.acog.org/-/media/project/acog/acogorg/clinical/files/committee-opini on/articles//-challenges.pdf - Monitor for side effects such as rash, gastrointestinal upset, or signs of allergic reaction. Follow-Up: - Close follow-up with the patient's personal machinist mate is advised to monitor clinical response and ensure resolution of symptoms.[3] https://pubmed.ncbi.nlm.nih.gov/70377033 [1] https://www.acog.org/-/media/project/acog/acogorg/cl inical/files/committee-opinion/articles//-challenges.pdf - If symptoms do not improve within 48 hours of starting antibiotics, or if they worsen, contact the provider promptly.[3] https://pubmed.ncbi.nlm.nih.gov/50643563 [1] https://www.acog.org/-/media/project/acog/acogorg/cl inical/files/committee-opinion/articles//-challenges.pdf Return Precautions: - Return to the emergency department or contact the provider immediately for: - High fever (>101?F/38.3?C) or chills - Rapidly worsening breast pain, redness, or swelling - Development of a fluctuant mass (possible abscess) - Signs of systemic illness (e.g., confusion, persistent vomiting, hypotension) - Inability to breastfeed or express milk due to pain - Any signs of allergic reaction to antibiotics (e.g., hives, difficulty breathing) Prevention and Education: - Optimize technique and address any latch or nipple trauma issues.[3] https://pubmed.ncbi.nlm.nih.gov/15256568 [4] https://pubmed.ncbi.nlm.nih.gov/49144807 - Avoid unnecessary pumping or overfeeding. - Probiotics and herbal supplements are not currently supported by robust evidence for prevention or treatment of mastitis.[3] https://pubmed.ncbi.nlm.nih.gov/00072188 [9] https://pubmed.ncbi.nlm.nih.gov/27302054 - If recurrent plugged ducts or mastitis, consider design center consultant evaluation for feeding technique and risk factors.[3] https://pubmed.ncbi.nlm.nih.gov/87143110 [4] https://pubmed.ncbi.nlm.nih.gov/82375428 Summary: - Continue , take antibiotics as prescribed, use conservative pain management, and monitor for complications. Follow up with CALENDER MACHINE OPERATOR and return for any concerning symptoms. References * Challenges https://www.acog.org/-/media/project/acog/acogorg/clinical/files/committee-sulema rick/articles//-challenges.pdf . Samantha Davenport MD, Satinder Foote MD IBCLC, Sharonda Jones MD. [place] [employer] (2020). * Technical Report: and the Use of Human Milk https://publications.aap.org/pediatrics/article-lookup/doi/10.1542/peds.2021-0 94588 . Ruddy JY, Herrera L. Pediatrics. 202;150(1):[id number]. doi:10.1542/peds.2021-574933. * Mastitis: Rapid Evidence Review https://pubmed.ncbi.nlm.nih.gov/41713880 . Cassi EF, [place] CM, Danilo SA. [employer]. 2023;110(2):174-182. * Management of Mastitis in Women https://pubmed.ncbi.nlm.nih.gov/57029412 . Scooter MARLOW. [employer]ician. 2008;78(6):727-31. * Treatments for Breast Engorgement During https://pubmed.ncbi.nlm.nih.gov/32234727 . Deshawn Thomas. The [place] Systematic Reviews. 2020;9:DH480359. doi:10.1002/91976651.OY067598.pub4. * Therapeutic Breast Massage in for the Management of Engorgement, Plugged Ducts, and Mastitis https://pubmed.ncbi.nlm.nih.gov/42832816 . [place] AM, Elle M, Vernat S, Carmen A. Journal of Human : Official Journal of [employer]. 2016;32(1):123-31. doi:10.1177/9061094006080988. * Six-Step Recanalization Manual Therapy: A Novel Method for Treating Plugged Ducts in Lactating Women https://pubmed.ncbi.nlm.nih.gov/40050113 . Jaime C, Dumont R, Garcia J, et al. Journal of Human : Official Journal of [employer]. 2014;30(3):324-330. doi:10.1177/4368977367805279. * Policy Statement: and the Use of Human Milk https://publications.aap.org/pediatrics/article-lookup/doi/10.1542/peds.2022-0 01572 . Ruddy MatuteY, Javier L. Pediatrics. 2022;150(1):[id number]. doi:10.1542/peds.2-441794. * Interventions for Preventing Mastitis After Childbirth https://pubmed.ncbi.nlm.nih.gov/42337454 . Brendan WATERS, Pat HELLER, Deshawn Barrios. [employer] [place] [employer] Systematic Reviews. 2020;9:GL766042. doi:10.1002/79962803.KR500113.pub4. Print Language: Occitan Coding Level of Care Code ED Marketing Research Intern for Robertg Karli
[2025-04-16] MEDS: HYDROcodone-acetaminophen 5-325 mg Tablet 2 TAB PO (23:23)
[2025-04-16 23:24] VITALS: BP 120/68; PULSE 91; RESP 16; O2SAT 97
== END 2025-04-16 23:26 | disposition home or self-care (01) ==
PROVIDERS: Emergency Provider Physician Assistant; PCP Family Medicine
DX: N61.0 Mastitis without abscess (principal)
CPT/HCPCS: 36415; 76882; 85025; 99284; J9999